=== PATIENT | female | born 1970 | race American Indian/Alaskan Native ===

== ENCOUNTER 2017-08-18 16:56 | Emergency (ER) | payer OTHER ==
[2017-08-18 17:43] LABS: Basophils % (Auto) 1.2 % (0.0-1.8); Eosinophils % (Auto) 1.3 % (0.0-4.3); Hematocrit 35.7 % (30.3-42.9); Hemoglobin 11.4 gm/dl (10.1-14.3); Mean Corpuscular HGB Conc 32 % (30-34); Mean Corpuscular Hemoglobin 27 pg (28-32); Mean Corpuscular Volume 84 fl (79-97); Platelet Count 304 K/mm3 (140-440); Red Blood Count 4.24 M/mm3 (3.65-5.03); Red Cell Distribution Width 17.4 % (13.2-15.2); White Blood Count 7.2 K/mm3 (4.5-11.0)
[2017-08-18 17:47] LABS: Anion Gap 19 mmol/L; BUN/Creatinine Ratio 10; Blood Urea Nitrogen 6 mg/dL (7-17); Calcium 9.1 mg/dL (8.4-10.2); Carbon Dioxide 23 mmol/L (22-30); Chloride 104.1 mmol/L (98-107); Glucose 96 mg/dL (65-100); Potassium 3.8 mmol/L (3.6-5.0); Sodium 142 mmol/L (137-145)
[2017-08-18] MEDS ORDERED: TORADOL IV ONE (22:33)
--- NOTE | 2017-08-18 22:38 | Emergency Department Report ---
ED Chest Pain HPI - General Chief Complaint: Chest Pain Stated Complaint: CHEST PAIN Time Seen by Provider: 08/18/17 22:01 Source: patient Mode of arrival: Ambulatory Limitations: No Limitations - History of Present Illness Initial Comments: 46-year-old female with 2 days of chest pain. Patient states that she's had worsening pain over the course of last couple days. The pain is in the left upper back that radiates around to her left shoulder. She has no shortness of breath with it. She is very helpful with the pain. She feels like it's on the inside. Describes it as sharp in nature. Not worse with deep breath and she does not feel short of breath. She has no history of ACS no history of PE in the family. MD Complaint: chest pain -: days(s) (2) Onset: during rest, during exertion Pain Location: other (left upper back left shoulder) Pain Radiation: LUE Severity: severe Severity scale (0 -10): 9 Quality: sharp Consistency: constant Improves With: nothing Worsens With: nothing re: denies: nausea, vomting, diaphoresis, dyspnea, sense of impending doom - Related Data Previous Rx's Medication Instructions Recorded Last Taken Type Cyclobenzaprine [Flexeril 10 MG 10 mg PO TID PRN #10 tablet 08/19/17 Unknown Rx TAB] Ibuprofen [Motrin] 600 mg PO Q8H PRN #30 tablet 08/19/17 Unknown Rx Allergies Allergy/AdvReac Type Severity Reaction Status Date / Time No Known Allergies Allergy Unverified 11/04/15 09:16 Heart Score - HEART Score History: Slightly suspicious EKG: Normal Age: 45-65 Risk factors: No known risk factors Troponin: < normal limit HEART Score: 1 - Critical Actions Critical Actions: 0-3 pts:0.9-1.7%risk of adverse cardiac event.Candidate for discharge ED Review of Systems ROS: Stated complaint: CHEST PAIN Other details as noted in HPI Comment: All other systems reviewed and negative Constitutional: denies: chills ENT: denies: ear pain, throat pain Respiratory: denies: cough, shortness of breath, wheezing Cardiovascular: denies: chest pain, palpitations Endocrine: no symptoms reported Gastrointestinal: denies: abdominal pain, nausea, diarrhea Genitourinary: denies: urgency, dysuria, discharge Musculoskeletal: denies: back pain, joint swelling, arthralgia Skin: denies: rash, lesions Neurological: denies: headache, weakness, paresthesias Psychiatric: denies: anxiety, depression Hematological/Lymphatic: denies: easy bleeding, easy bruising ED Past Medical Hx - Past Medical History Previous Medical History?: No - Surgical History Past Surgical History?: No - Family History Family history: no significant - Social History Smoking Status: Current Some Day Smoker Substance Use Type: Alcohol - Medications Home Medications: Home Medications Medication Instructions Recorded Confirmed Last Taken Type Cyclobenzaprine [Flexeril 10 MG 10 mg PO TID PRN #10 tablet 08/19/17 Unknown Rx TAB] Ibuprofen [Motrin] 600 mg PO Q8H PRN #30 tablet 08/19/17 Unknown Rx ED Physical Exam - General Limitations: No Limitations General appearance: alert, in no apparent distress - Head Head exam: Present: atraumatic, normocephalic - Eye Eye exam: Present: normal appearance - ENT ENT exam: Present: mucous membranes moist - Neck Neck exam: Present: normal inspection - Respiratory Respiratory exam: Present: normal lung sounds bilaterally. Absent: respiratory distress - Cardiovascular Cardiovascular Exam: Present: regular rate, normal rhythm. Absent: systolic murmur, diastolic murmur, rubs, gallop - GI/Abdominal GI/Abdominal exam: Present: soft, normal bowel sounds - Extremities Exam Extremities exam: Present: normal inspection - Back Exam Back exam: Present: normal inspection - Neurological Exam Neurological exam: Present: alert, oriented X3 - Psychiatric Psychiatric exam: Present: normal affect, normal mood - Skin Skin exam: Present: warm, dry, intact, normal color. Absent: rash ED Course Vital Signs 08/18/17 08/18/17 08/18/17 17:06 21:44 21:46 Temperature 98.7 F Pulse Rate 77 68 71 Respiratory 16 22 14 Rate Blood Pressure 137/98 151/100 O2 Sat by Pulse 100 100 Oximetry 08/18/17 21:51 Temperature Pulse Rate 77 Respiratory 18 Rate Blood Pressure O2 Sat by Pulse 100 Oximetry ED Medical Decision Making - Lab Data Result diagrams: 08/18/17 17:14 08/18/17 17:14 Laboratory Results - last 24 hr 08/18/17 08/18/17 08/18/17 17:14 17:14 19:56 WBC 7.2 RBC 4.24 Hgb 11.4 Hct 35.7 MCV 84 MCH 27 L MCHC 32 RDW 17.4 H Plt Count 304 Lymph % (Auto) 28.6 [place] % (Auto) 8.4 H Eos % (Auto) 1.3 Baso % (Auto) 1.2 Lymph # 2.1 [place] # 0.6 Eos # 0.1 Baso # 0.1 Seg Neutrophils % 60.5 Seg Neutrophils # 4.4 Sodium 142 Potassium 3.8 Chloride 104.1 Carbon Dioxide 23 Anion Gap 19 BUN 6 L Creatinine 0.6 L Estimated GFR > 60 BUN/Creatinine Ratio 10 Glucose 96 Calcium 9.1 Troponin T < 0.010 < 0.010 Laboratory Results - last 24 hr 08/18/17 08/18/17 08/18/17 17:14 17:14 19:56 WBC 7.2 RBC 4.24 Hgb 11.4 Hct 35.7 MCV 84 MCH 27 L MCHC 32 RDW 17.4 H Plt Count 304 Lymph % (Auto) 28.6 [place] % (Auto) 8.4 H Eos % (Auto) 1.3 Baso % (Auto) 1.2 Lymph # 2.1 [place] # 0.6 Eos # 0.1 Baso # 0.1 Seg Neutrophils % 60.5 Seg Neutrophils # 4.4 D-Dimer Sodium 142 Potassium 3.8 Chloride 104.1 Carbon Dioxide 23 Anion Gap 19 BUN 6 L Creatinine 0.6 L Estimated GFR > 60 BUN/Creatinine Ratio 10 Glucose 96 Calcium 9.1 Troponin T < 0.010 < 0.010 08/18/17 08/18/17 23:05 23:05 WBC RBC Hgb Hct MCV MCH MCHC RDW Plt Count Lymph % (Auto) [place] % (Auto) Eos % (Auto) Baso % (Auto) Lymph # [place] # Eos # Baso # Seg Neutrophils % Seg Neutrophils # D-Dimer 163.17 Sodium Potassium Chloride Carbon Dioxide Anion Gap BUN Creatinine Estimated GFR BUN/Creatinine Ratio Glucose Calcium Troponin T < 0.010 - EKG Data -: EKG Interpreted by Me - EKG Data 08/19/17 01:05 Sinus rate is 76 normal axis normal intervals no ST-T wave changes - Medical Decision Making 46-year-old female here with left upper chest and back pain. Patient has had pain for the last several days. It is worsened. She has significant discomfort in the left upper chest and back. EKG is unremarkable labs are unremarkable. Plain and d-dimer to rule out PE and will reassess pain. Workup negative at this point. She is heart score low risk and wells low risk. Plan to discharge the patient with NSAIDs and muscle accidents. She does not have mediastinum widening and I do not feel she has an aortic dissection. Portions of this chart were dictated with dictation software. There may be dictation errors contained within this note. Critical care attestation.: If time is entered above; I have spent that time in minutes in the direct care of this critically ill patient, excluding procedure time. ED Disposition Clinical Impression: Chest pain Disposition: DC-01 TO HOME OR SELFCARE Is pt being admited?: No Condition: Stable Instructions: Chest Pain (ED) Prescriptions: Cyclobenzaprine [Flexeril 10 MG TAB] 10 mg PO TID PRN #10 tablet PRN Reason: Muscle Spasm Ibuprofen [Motrin] 600 mg PO Q8H PRN #30 tablet PRN Reason: Pain Referrals: PRIMARY CARE, [Primary Care Provider] - 3-5 Days
--- NOTE | 2017-08-19 00:04 | XRay Report ---
FINAL REPORT EXAM: XR CHEST 1V AP HISTORY: chest pain TECHNIQUE: upright single view chest PRIORS: None. FINDINGS: Cardiac and mediastinal contours are unremarkable. No focal pulmonary infiltrate is identified. No pleural fluid collection seen. Pulmonary vasculature is unremarkable. IMPRESSION: Negative single-view chest
[2017-08-19] MEDS ORDERED: MORPHINE IV ONE (00:05)
[2017-08-19 01:12] VITALS: BP 124/86
== END 2017-08-19 01:30 | disposition home or self-care (01) ==
LOC: ED 16:56
DX: R07.89 Other chest pain (principal); F17.210 Nicotine dependence, cigarettes, uncomplicated
CPT/HCPCS: 36415; 71010; 80048; 84484; 85025; 85379; 93005; 93010; 96374; 96375; 99284; J1885; J2270